=== PATIENT | female | born 1935 | race Caucasian/White ===

== ENCOUNTER 2024-03-11 11:54 | Inpatient (IN) | payer OTHER, MEDICARE ==
[2024-03-11] MEDS ORDERED: methylPREDNISolone NA SUCC 125 MG/2 ML VIAL ONE (13:30)
[2024-03-11] MEDS ORDERED: ALBUTEROL SO4 2.5/IPRATROPIUM 0.5 INH SOL 3 ML VIAL.NEB. NEB ONE (13:30)
[2024-03-11 13:55] LABS: VENOUS O2 SATURATION 81.2 % (70-80); VENOUS PCO2 35.3 mmHg (38-52); VENOUS PH 7.252 (7.310-7.410)
[2024-03-11] MEDS: methylPREDNISolone NA SUCC 125 MG/2 ML VIAL IVPUSH ONE (13:56)
[2024-03-11] MEDS: ALBUTEROL SO4 2.5/IPRATROPIUM 0.5 INH SOL 3 ML VIAL.NEB. NEB SCH (13:56)
[2024-03-11 13:58] LABS: HEMATOCRIT 36.1 % (32.4-45.2); HEMOGLOBIN 11.9 GM/dL (10.7-15.3); MCH 31.8 pg (25.7-33.7); MEAN CELL VOLUME 96.5 fl (80-96); PLATELET COUNT 255 10^3/uL (134-434); RBC 3.74 M/mm3 (3.60-5.2); RDW 17.9 % (11.6-15.6); WHITE BLOOD COUNT 14.8 K/mm3 (4.0-10.0)
[2024-03-11 14:02] LABS: INR 1.59 (0.83-1.09); PROTHROMBIN TIME (PATIENT) 17.7 SEC (9.7-13.0)
[2024-03-11 14:05] LABS: ACTIVATED PTT 35.6 SECONDS (25.2-36.5)
[2024-03-11 14:18] LABS: ANISOCYTOSIS 0; MACROCYTOSIS 0
[2024-03-11 14:19] LABS: POTASSIUM 5.7 mmol/L (3.5-5.1)
[2024-03-11 14:21] LABS: ALBUMIN 1.9 g/dl (3.4-5.0); BLOOD UREA NITROGEN 55.5 mg/dL (7-18)
[2024-03-11] MEDS: SODIUM CHLORIDE 0.9% 500 ML INFUS.BAG IV ONE (14:21)
[2024-03-11 14:24] LABS: CREATININE 2.7 mg/dL (0.55-1.3)
[2024-03-11 14:25] LABS: BILIRUBIN,TOTAL 2.3 mg/dL (0.2-1)
[2024-03-11 14:26] LABS: TOT PROT 4.7 g/dl (6.4-8.2)
[2024-03-11 14:27] LABS: N-TERMINAL BNP 13044.1 pg/ml (5-450)
[2024-03-11] MEDS ORDERED: PIPERACILLIN/TAZOB 3.375 GM 3.375 GM/50 ML BAG IVPB ONE (15:13)
[2024-03-11] MEDS: PIPERACILLIN/TAZOB 3.375 GM 3.375 GM in DEXTROSE 5%-WATER - 50 ML IVPB ONE (15:21)
[2024-03-11] MEDS ORDERED: VANCOMYCIN 1 GRAM (PRE-DOCKED) 1,000 MG/250 ML BAG IVPB ONE (15:30)
[2024-03-11] MEDS: VANCOMYCIN 1,000 MG in DEXTROSE 5%-WATER - 250 ML IVPB ONE (15:40)
[2024-03-11] MEDS: DIGOXIN 0.125 MG TABLET PO SCH (18:57)
[2024-03-11] MEDS ORDERED: IPRATROPIUM BR 0.02% 0.5 MG/2.5 ML VIAL.NEB. NEB PRN (19:29)
[2024-03-11] MEDS ORDERED: ALBUTEROL SO4 2.5/IPRATROPIUM 0.5 INH SOL 3 ML VIAL.NEB. NEB PRN (19:29)
[2024-03-11] MEDS ORDERED: BENZOCAINE 28 GM HEMORRHOIDAL OINTMENT RC PRN (20:15)
[2024-03-11] MEDS ORDERED: ACETAMINOPHEN 325 MG TABLET (FP) PO PRN (20:16)
[2024-03-11] MEDS: MUPIROCIN 2% TOPICAL OINTMENT FOR DECOLONIZATION NS SCH (21:48)
[2024-03-11] MEDS: LACTATED RINGERS SOLUTION 1,000 ML/1,000 ML INFUS.BAG IV SCH (21:48)
[2024-03-11] MEDS: CHLORHEXIDINE GLUCONATE 4% CLEANSER FOR DECOLONIZATION TP SCH (21:48)
[2024-03-11] MEDS: SODIUM ZIRCONIUM CYCLOSILICATE (LOKELMA) 5 GM PACKET PO SCH (21:48)
[2024-03-11] MEDS: PANTOPRAZOLE 20 MG TABLET PO SCH (21:49)
[2024-03-11] MEDS: PIPERACILLIN/TAZOB 2.25 GM 2.25 GM in DEXTROSE 5%-WATER - 50 ML IVPB SCH (22:12)
[2024-03-11] MEDS: methylPREDNISolone NA SUCC 40 MG/1 ML VIAL IVPUSH SCH (22:12)
[2024-03-11] MEDS ORDERED: PHENYLEPHRINE HCL 10 MG/1 ML SINGLE DOSE VIAL ONE (22:27)
[2024-03-11] MEDS: PHENYLEPHRINE NS PREMIX 50,000 MCG/500 ML BAG CVP SCH (22:34)
[2024-03-11 23:09] VITALS: BMI 18.9
[2024-03-12] MEDS ORDERED: ACETAMINOPHEN INJECTION 100 ML ONE (00:20)
[2024-03-12 01:31] LABS: EPI CELLS >36 /uL (0-25.1); HYALINE CASTS 5 /uL (0-3.1); URINE APPEARANCE TURBID; URINE BACTERIA >9,000 /uL (0-1359); URINE BILIRUBIN 1+ (NEGATIVE); URINE COLOR DK YELLOW; URINE GLUCOSE (UA) NEGATIVE (NEGATIVE); URINE KETONE TRACE (NEGATIVE); URINE LEUK ESTERASE 3+ (NEGATIVE); URINE NITRITE NEGATIVE (NEGATIVE); URINE PROTEIN 2+ (NEGATIVE); URINE RBC 54 /uL (0-23.9); URINE WBC 3484 /uL (0-25.8)
[2024-03-12 02:52] LABS: CHLORIDE 103 mmol/L (98-107); POTASSIUM 4.9 mmol/L (3.5-5.1); SODIUM 134 mmol/L (136-145)
[2024-03-12 02:54] LABS: GLUCOSE,RANDOM 99 mg/dL (74-106)
[2024-03-12 02:55] LABS: ALBUMIN 1.8 g/dl (3.4-5.0); ANION GAP 16 mmol/L (4-13); BLOOD UREA NITROGEN 51.4 mg/dL (7-18); CO2 15 mmol/L (21-32); MAGNESIUM 1.8 mg/dL (1.8-2.4)
[2024-03-12 02:57] LABS: CREATININE 2.8 mg/dL (0.55-1.3); SGPT/ALT 25 U/L (13-61)
[2024-03-12 02:58] LABS: PHOSPHOROUS 4.4 mg/dL (2.5-4.9); SGOT/AST 61 U/L (15-37)
[2024-03-12 02:59] LABS: TOT PROT 4.6 g/dl (6.4-8.2)
[2024-03-12 03:00] LABS: ALK PHOS 220 U/L (45-117)
[2024-03-12] MEDS: NOREPINEPHRINE BITARTRATE/D5W 8 MG/250 ML BAG IVPB SCH (03:00)
[2024-03-12 03:04] LABS: CALCIUM 6.5 mg/dL (8.5-10.1)
[2024-03-12] MEDS: LACTATED RINGERS SOLUTION 1,000 ML/1,000 ML INFUS.BAG IV SCH ×2 (05:55→11:58)
[2024-03-12] MEDS: LACTATED RINGERS SOLUTION 1000 ML INFUS.BAG IV ONE (05:55)
[2024-03-12 05:58] VITALS: TEMP 97.4
[2024-03-12 06:42] LABS: ARTERIAL BLD GAS O2 SATURATION 99.1 % (95-98); ARTERIAL BLOOD GAS PO2 180.1 mmHg (80-100); ARTERIAL BLOOD GAS pH 7.277 (7.350-7.450)
[2024-03-12 06:44] LABS: ALLENS TEST POSITIVE
[2024-03-12 06:50] LABS: HEMATOCRIT 38.3 % (32.4-45.2); HEMOGLOBIN 12.6 GM/dL (10.7-15.3); MCH 31.8 pg (25.7-33.7); MCHC 32.8 g/dl (32.0-36.0); MEAN PLT VOLUME 7.6 fl (7.5-11.1); PLATELET COUNT 310 10^3/uL (134-434); RBC 3.95 M/mm3 (3.60-5.2); RDW 18.4 % (11.6-15.6); WHITE BLOOD COUNT 20.6 K/mm3 (4.0-10.0)
[2024-03-12] MEDS: HYDROCORTISONE SOD SUCCINATE 100 MG/2 ML VIAL IVPB SCH (09:54)
[2024-03-12] MEDS: PANTOPRAZOLE SODIUM 40 MG VIAL IVPUSH SCH (09:54)
[2024-03-12] MEDS: VASopressin 40 UNITS/100 ML BAG IV SCH (11:00)
[2024-03-12] MEDS: SODIUM CHLORIDE 1,000 ML IV SCH (11:56)
[2024-03-12] MEDS ORDERED: ACETAMINOPHEN 1000 MG/100 ML BAG IVPB PRN (14:41)
[2024-03-12] MEDS ORDERED: DEXTROSE 5% IVPB SCH (15:00)
[2024-03-12] MEDS ORDERED: VANCOMYCIN 750 MG in DEXTROSE 5%-WATER - 250 ML IVPB SCH (15:00)
[2024-03-12] MEDS ORDERED: VANCOMYCIN IVPB SCH (15:00)
[2024-03-12] MEDS ORDERED: VANCOMYCIN/WATER FOR INJ (PEG) 750 MG/150 ML BAG IVPB SCH (15:00)
[2024-03-12] MEDS ORDERED: WATER IVPB SCH (15:00)
[2024-03-12] MEDS: PIPERACILLIN/TAZOB 2.25 GM 2.25 GM in DEXTROSE 5%-WATER - 50 ML IVPB SCH ×2 (15:13→17:59)
[2024-03-12] MEDS: ACETAMINOPHEN 1000 MG/100 ML BAG IVPB PRN (15:14)
[2024-03-12] MEDS: RIVAROXABAN 10 MG TABLET PO SCH (17:30)
[2024-03-12] MEDS: CALCIUM GLUCONATE IN NACL 1 GM/50 ML BAG IVPB ONE (17:59)
[2024-03-12] MEDS: HEPARIN NA (PORCINE) 5,000 UNITS/ML 1ML VIAL SQ SCH (22:30)
[2024-03-13 01:19] VITALS: BP 93/43; PULSE 80; RESP 20
== END 2024-03-13 00:10 | disposition expired | DRG 871 ==
LOC: JER 11:54 → JERBED 16:15 → JICU 18:21
PROVIDERS: ADMIT Internal Medicine Pulmonary Disease; ATTEND Internal Medicine Pulmonary Disease
PROC: 05HY33Z Insertion of Infusion Device into Upper Vein, Percutaneous Approach (ICD-10-PCS; principal; 2024-03-12)
PROC: 4A133B1 Monitoring of Arterial Pressure, Peripheral, Percutaneous Approach (ICD-10-PCS; 2024-03-12)
PROC: 4A133J1 Monitoring of Arterial Pulse, Peripheral, Percutaneous Approach (ICD-10-PCS; 2024-03-12)
DX: A41.9 Sepsis, unspecified organism (principal); J96.01 Acute respiratory failure with hypoxia; R65.21 Severe sepsis with septic shock; N39.0 Urinary tract infection, site not specified; N17.9 Acute kidney failure, unspecified; I24.89 Other forms of acute ischemic heart disease; I12.9 Hypertensive chronic kidney disease with stage 1 through stage 4 chronic kidney disease, or unspecified chronic kidney disease; N18.9 Chronic kidney disease, unspecified; I48.91 Unspecified atrial fibrillation; E78.5 Hyperlipidemia, unspecified; I25.10 Atherosclerotic heart disease of native coronary artery without angina pectoris; R13.10 Dysphagia, unspecified; I95.9 Hypotension, unspecified; E87.5 Hyperkalemia
CPT/HCPCS: 0241U-QW; 36415; 36600; 71045-TC-FY; 80048; 80053; 81003; 82803; 82962; 83605; 83735; 83880; 84100; 84484; 85025; 85027; 85610; 85730; 87040; 87086; 87186; 93005; 93010; 93306-TC; 93970-TC; 94660; 99291; J0131; J1644; J3490